=== PATIENT | male | born 1965 | race Caucasian/White ===

== ENCOUNTER 2017-07-15 09:00 | Outpatient (RCR) | payer OTHER, SELFPAY | END 2017-07-15 16:00 | disposition home or self-care (01) | LOC: PT 09:00 | PROVIDERS: Visit Provider Neurological Surgery | DX: M54.2 Cervicalgia (principal) | CPT/HCPCS: 97012; 97035; 97110 ==

== ENCOUNTER 2022-09-21 18:31 | Emergency (ER) | payer MEDICARE, SELFPAY ==
[2022-09-21 18:31] VITALS: BP 133/85; PULSE 91; RESP 18; TEMP 36.9; O2SAT 98; BMI 24.6
--- NOTE | 2022-09-21 18:39 | XR_ITS ---
PROCEDURE INFORMATION: Exam: XR Right Elbow Exam date and time: 09/21/2022 6:52 PM Age: 56 years old Clinical indication: Injury or trauma; Fall; Blunt trauma (contusions or hematomas); Elbow; Right TECHNIQUE: Imaging protocol: Radiologic exam of the right elbow. Views: 3 or more views. COMPARISON: No relevant prior studies available. FINDINGS: Bones/joints: Suspect small joint effusion. No dislocation. Soft tissues: No radiopaque foreign body. IMPRESSION: Suspect small joint effusion raising concern for potential occult fracture.
--- NOTE | 2022-09-21 19:45 | EXP.UTC ---
Discharge Plan Disposition Patient Disposition: Home, Self-Care Condition: Good Prescriptions Prescriptions: New cephalexin 500 mg capsule 500 mg PO Q8H 7 Days Qty: 21 0RF ondansetron 4 mg tablet,disintegrating 4 mg PO Q8H PRN (Reason: nausea and vomiting) Qty: 6 0RF No Action gabapentin 600 MG tablet 600 mg PO DAILY rivaroxaban 20 MG tablet 20 mg PO DAILY amoxicillin 875 MG tablet 875 mg PO Q12H Qty: 20 0RF fluticasone propionate 9.9 ML spray,suspension 1 spray NS BID 30 Days Qty: 1 0RF Referrals Follow up/Referrals: Mode Chowdhury DO [Staff Physician] - See instructions (Call office for appointment) Marialuisa Hinton APRN [Primary Care Provider] - See instructions Activity Restrictions/Add. Instructions Additional Instructions/Restrictions: *weight bearing as tolerated *RICE, Rest the extremity, Ice 15-20 minutes 3-4 times daily, Compress- wear the ramone wrap as discussed as much as possible to help reduce swelling and pain, Elevate the extremity when at rest *Orthoglass with Ramone wrap and sling is for support and help control swelling, Be sure that is not to tight but not to loose either *Elevate when resting? * take Tylenol for pain Zofran for nausea Immediately follow up with your family doctor for new or worsening of symptoms, or no noticeable improvement over the next 3-5 days Call Orthopedic office tomorrow for appointment Clinical Impressions Clinical Impression: Elbow injury, Effusion into joint Stand Alone Forms Stand Alone Forms: Work/School Release Instructions Patient Instructions: How to Use a Sling, Acetaminophen (Alternative Therapy), How To Perform RICE (Rest, Ice, Compress, Elevate) Discharge ED Provider: Doreen Bingham [facility] General Stated complaint: AO 09/20, right elbow pain/swelling Mode of Arrival: Ambulatory Source of Information: Patient Limitations: No Limitations Time Seen by Provider: 09/21/22 18:50 Description of Symptoms (Recalled from Triage Doc. by RN): Fell last night and hit right lebow on a rock. HEENT Symptoms (Recalled from RN notes): No Resp Symptoms (Recalled from RN notes): No Skin Symptoms (Recalled from RN notes): No MS Symptoms (Recalled from RN notes): Yes Functional Status (Recalled from RN notes): wnl History of Present Illness Provider Complaint: Patient states that he fell last night and landed on his right elbow States that he had a scratch on it but he could move ok so he went to bed States that this morning it was still not bothering him much so he went to work and noticed it started swelling and hurting States that this evening it was still swollen and hurt when he would move it so he came in to get it checked Related Data Home Medications Medication Instructions Recorded Confirmed gabapentin 600 mg tablet 600 mg PO DAILY Pain 06/30/19 06/30/19 rivaroxaban 20 mg tablet 20 mg PO DAILY Blood thinner 06/30/19 06/30/19 Previous Rx's Medication Instructions Recorded amoxicillin 875 mg tablet 875 mg PO Q12H #20 tabs 06/30/19 fluticasone propionate 50 1 spray NS BID 30 days ##1 06/30/19 mcg/actuation nasal spray,suspension cephalexin 500 mg capsule 500 mg PO Q8H 7 days #21 caps 09/21/22 ondansetron 4 mg disintegrating 4 mg PO Q8H PRN nausea and 09/21/22 tablet vomiting #6 tabs Allergies Allergy/AdvReac Type Severity Reaction Status Date / Time No Known Allergies Allergy Verified 06/30/19 14:18 Worker's Comp Is this a Worker's Comp case?: No [facility] Disclaimer: The information contained in this section may have been updated after the patient was seen, as this information can be updated by other users. Social History Smoking Status: Unknown if ever smoked alcohol intake: never current occupational status: employed Travel in the last 8 weeks: None ROS Obtained: Yes All systems reviewed & no additional complaints except as documented and Yes Systems reviewed as appropriate &
[2022-09-21 20:27] VITALS: BP 133/85; PULSE 91; RESP 18; TEMP 36.9; O2SAT 98
== END 2022-09-21 20:28 | disposition home or self-care (01) ==
PROVIDERS: Emergency Provider Nurse Practitioner; PCP Nurse Practitioner
DX: S59.901A Unspecified injury of right elbow, initial encounter (principal); M25.421 Effusion, right elbow; W19.XXXA Unspecified fall, initial encounter
CPT/HCPCS: 29105; 73080; 99204; 99213; G0463

== ENCOUNTER 2024-08-01 10:00 | Outpatient (RCR) | payer MEDICARE, SELFPAY | END 2024-08-01 23:59 | disposition home or self-care (01) | LOC: PT 10:00 | PROVIDERS: PCP Nurse Practitioner; Visit Provider Anesthesiology Pain Medicine | DX: M54.12 Radiculopathy, cervical region (principal) | CPT/HCPCS: 97110; 97140; 97163 ==

== ENCOUNTER 2024-08-30 08:00 | Outpatient (RCR) | payer MEDICARE, SELFPAY | END 2024-09-05 08:19 | disposition home or self-care (01) | LOC: PT.CARL 08:00 | PROVIDERS: PCP Nurse Practitioner; Visit Provider Anesthesiology Pain Medicine | DX: M54.12 Radiculopathy, cervical region (principal) | CPT/HCPCS: 97110; 97112; 97140 ==

== ENCOUNTER 2024-09-19 07:00 | Outpatient (RCR) | payer MEDICARE, SELFPAY | END 2024-09-19 23:59 | disposition home or self-care (01) | LOC: PT.CARL 07:00 | PROVIDERS: PCP Nurse Practitioner; Visit Provider Neurological Surgery | DX: M54.16 Radiculopathy, lumbar region (principal) | CPT/HCPCS: 97110; 97140; 97161 ==